=== PATIENT | female | born 1995 | race Caucasian/White ===

== ENCOUNTER 2021-01-16 14:52 | Emergency (ER) | payer OTHER, SELFPAY ==
[2021-01-16 19:25] VITALS: BP 109/70; PULSE 99; RESP 16; TEMP 36.3; O2SAT 99; BMI 28.0
[2021-01-16 20:54] VITALS: PULSE 83; RESP 12; TEMP 37.1; O2SAT 100
--- NOTE | 2021-01-16 22:00 | ED.ABDPAIN ---
HPI - Abdominal Pain General Chief Complaint: Abdominal Pain Stated Complaint: groin pain Time Seen by Provider: 01/16/21 21:39 Source: patient Mode of arrival: ambulatory Limitations: no limitations History of Present Illness HPI narrative: 25-year-old female who presents emergency department for evaluation lower abdominal and right groin pain x1 week. The patient states that she felt a small bump in the right lower groin area. She states the bump is gotten larger and is now very painful. She states she pushes on the bump the pain is 7/10. The pain is a constant, dull ache otherwise. She denied fever, chills, chest pain, shortness of breath, nausea, vomiting, frequency, urgency or dysuria. Related Data Previous Rx's Medication Instructions Recorded cephalexin 500 mg capsule 500 mg PO QID 7 Days #28 cap 01/16/21 Allergies Allergy/AdvReac Type Severity Reaction Status Date / Time No Known Allergies Allergy Verified 01/16/21 22:04 Review of Systems Review of Systems Yes all other systems are reviewed and are negative Physical Exam Vital Signs: Vital Signs: Last Vital Signs Temp 98.7 F 01/16/21 20:54 Pulse 83 01/16/21 20:54 Resp 12 01/16/21 20:54 BP 109/70 01/16/21 19:25 Pulse Ox 100 01/16/21 20:54 Body Mass Index 28.0 Const: General: cooperative and no acute distress Orientation/consciousness: oriented to person and oriented to place Limitations: no limitations HENMT: Head: Yes normal to inspection, Yes normocephalic and Yes atraumatic Ears: external ears normal General nose exam: Normal external nose present Face and sinus: Yes normal facial exam Mouth: Normal oral and palatal mucosa present Throat: Yes posterior oropharynx normal Eyes: General: appearance normal, both eyes and all related structures Pupils: Equal, round and reactive pupils present Neck: Neck: Yes normal visual inspection, Yes no lymphadenopathy, Yes trachea midline and Yes supple Chest: Chest palpation & inspection: normal inspection of the chest and normal palpation of entire chest wall Resp: Effort & Inspection: normal respiratory effort and able to speak in complete sentences Auscultation: clear to auscultation bilaterally Cardio: Rate: regular rate Rhythm: regular rhythm Heart sounds: S1 normal heart sound present, S2 normal heart sound present and no murmurs GI: Inspection: Yes normal to inspection Palpation (GI): Soft to palpation, Tenderness to palpation present (GI) (Right groin crease, small, 1 cm tender mass, no erythema or increased warmt) and no guarding Auscultation: normal bowel sounds : General: Yes no CVA tenderness Back/Spine/Pelvis: Back: no CVA tenderness Skin: General skin exam: no rashes or lesions noted Neuro: General: oriented to person and oriented to place Cranial nerves: Yes CN's II-XII intact bilaterally and Yes Equal, round and reactive pupils present Cognition (Neuro): normal cognition Motor exam (neuro): 5/5 motor strength present throughout Extrem: General: Yes normal to inspection Psych: Appearance: grossly normal Speech and movement: Normal speech and movement present Affect: normal affect Attitude: cooperative Thought process: Normal thought process present Thought content: Normal thought content present Course Course Course Narrative: 25-year-old female who presents emergency department for evaluation of right groin crease pain with a palpable mass. Physical examination does reveal a any small palpable mass in this area which I suspect is either an early abscess or lymph node. I did discuss treatment with the patient. The patient will be started on Keflex 500 mg 4 times a day for 7 days. She was also advised to take Tylenol and ibuprofen for pain. She was advised to get a heating pad and set on lower apply to this area for 15 minutes 4 to 6 times a day. Patient was discharged home. The patient was given verbal and printed instructions prior to discharge. The patient was advised to follow-up with h her s PCP in 2 days and to return to the emergency department if her symptoms get worse or if he develops any new symptoms that are concerning to her. Discharge Plan Discharge Clinical Impression: Abscess of groin, right Patient Disposition: Home, Self-Care Instructions: Abscess (ED) Additional Instructions: The tenderness in your right groin is most likely caused by an early abscess (collection of pus) that does not need to be drained at this time. I want to treat you with antibiotics to clear up this infection. Take Keflex (cephalexin) 500 mg, 1 pill 4 times a day for 7 days. Apply a heating pad on low for 15 minutes 4 to 6 times a day for the next 2-3 days, this will increase the blood flow to the area of her groin and help fight off the infection. Take ibuprofen 200 mg pills, 3 pills every 6 hours as needed for pain. Take Tylenol (acetaminophen) 500 mg pills, 2 pills every 4 to 6 hours as needed for pain. Follow-up with your doctor in 2 days. Please return to the emergency department if your symptoms get worse or if you develop any symptoms that are concerning to you. Prescriptions: New cephalexin 500 mg capsule 500 mg PO QID 7 Days Qty: 28 RF: 0 PMFSH Past Medical History PMFSH Narrative: Past will history: None. Past surgical history: Appendectomy, April 2017. Social history: She denies tobacco use. She denies alcohol use. She denies drug use. Social History Social History Advance Directives: No Advance Directives Information Provided: Yes Patient : No
[2021-01-16] MEDS: cephALEXin 500 MG CAPSULE PO (22:27)
[2021-01-16] MEDS: Ibuprofen 600 MG TABLET PO (22:27)
== END 2021-01-16 22:32 | disposition home or self-care (01) ==
PROVIDERS: Emergency Provider Emergency Medicine Emergency Medical Services; PCP Internal Medicine
DX: L02.214 Cutaneous abscess of groin (principal); Z79.899 Other long term (current) drug therapy
CPT/HCPCS: 99284

== ENCOUNTER 2021-04-17 21:43 | Emergency (ER) | payer OTHER, SELFPAY ==
--- NOTE | ~2021-04-17 | XR_ITS ---
EXAMINATION: XR HAND, LEFT CLINICAL INFORMATION: Dog bite to left thumb. COMPARISON: None TECHNIQUE: PA, lateral, and oblique views of the left hand. FINDINGS: No acute fracture or dislocation. No joint space narrowing or marginal osteophytes. No osseous erosion. No radiopaque foreign body. XR/XR hand LT min 3V IMPRESSION: No acute osseous abnormality or radiopaque foreign body.
[2021-04-17 22:15] VITALS: BP 130/90; PULSE 84; RESP 18; TEMP 36.6; O2SAT 98; BMI 27.6
--- NOTE | 2021-04-17 22:35 | ED.ANIMALBIT ---
HPI - Animal Bite General Chief Complaint: Animal Bite Stated Complaint: lacs from dog bite Time Seen by Provider: 04/17/21 22:32 Source: patient Mode of arrival: ambulatory History of Present Illness HPI narrative: 25-year-old female reports being bitten by an unknown dog without tags that she states responded to loud noise when she was jumping her garbage. Patient states that she has received Tdap within the past year. Related Data Previous Rx's Medication Instructions Recorded cephalexin 500 mg capsule 500 mg PO QID 7 Days #28 cap 01/16/21 amoxicillin 875 mg-potassium 1 tab PO Q12H 5 Days #10 tab 04/17/21 clavulanate 125 mg tablet (Augmentin) Allergies Allergy/AdvReac Type Severity Reaction Status Date / Time No Known Allergies Allergy Verified 01/16/21 22:04 Review of Systems Review of Systems: Pertinent positives and negatives as stated in HPI 10 point review of systems otherwise negative. PMFSH Past Medical History Source: nursing notes reviewed Social History Social History Advance Directives: No Patient : No Physical Exam Vital Signs: Vital Signs: Last Vital Signs Temp 97.8 F 04/17/21 22:15 Pulse 84 04/17/21 22:15 Resp 18 04/17/21 22:15 BP 130/90 H 04/17/21 22:15 Pulse Ox 98 04/17/21 22:15 BMI result Body Mass Index 27.6 VITAL SIGNS: Reviewed. GENERAL: Well developed, well nourished, in no acute distress. HEAD: Normocephalic/atraumatic EYES: PERRLA, EOMI LUNGS: Normal breath sounds. No adventitious sounds or accessory muscle use. SpO2<98> CARDIOVASCULAR: Regular rate and rhythm without noted murmurs ABDOMEN: Soft, non-tender, non-distended with bowel sounds. LEFT LOWER EXTREMITY: Very superficial abrasions to epidermis without deeper injury to lateral aspect of lower leg. LEFT UPPER EXTREMITY: There are a few superficial epidermal abrasions to elbow area with corresponding deeper dermal injuries and than obvious laceration to pad of left thumb. NEUROLOGIC: Alert and oriented x 4. Strength and sensation to light touch were grossly intact x 4. Course Course Course Narrative: 25-year-old female with history and clinical presentation consistent with unknown dog who bit patient. Patient has up-to-date Tdap and otherwise received rabies post exposure vaccines as per CDC guidelines. X-ray negative for acute bony injury of the left thumb. Patient received combination analgesics as well as suture repair to left thumb which patient tolerated well. Patient understands the return regimen for subsequent rabies vaccine administration and was otherwise discharged home in stable condition. Wound copiously injected with HRIG. Procedures Laceration Laceration 1: Site: upper extremity Side (If applicable): left Size (cm): 2 Description: linear Depth: simple, single layer Local Anesthetic: lidocaine 2% Amount of anesthesia used (mL): 5 Pre-repair: wound explored, irrigated extensively and deep structures intact Skin layer closed with: nylon Size (cm): 4-0 Number of sutures: 2 Technique: simple, interrupted Discharge Plan Discharge Clinical Impression: Dog bite, Need for post exposure prophylaxis for rabies, Laceration of hand Patient Disposition: Home, Self-Care Instructions: Animal Bite (ED), Laceration (ED), Rabies Immune Globulin (By injection), Rabies Vaccine (By injection), Care For Your Stitches (ED) Additional Instructions: 1. [id number] Tylenol/ibuprofen as needed for pain control. Keep your hand elevated to prevent throbbing pain into the thumb. 2. Please follow the below directions as well as the paperwork that was provided to you by the nurse for subsequent rabies vaccines. 3. Return to the ER for removal of your stitches in 5-7 days. These can be gently wash with soap and water/blot dry/re-application of bacitracin or other antibiotic ointment. 4. Complete the entire course of antibiotics that you have been prescribed. Postexposure prophylaxis (PEP) consists of a dose ofgiven on the day of the rabies exposure, and then a dose of vaccine given again on days 3, 7, and 14. Prescriptions: New amoxicillin-pot clavulanate [Augmentin] 875-125 mg tablet 1 tab PO Q12H 5 Days Qty: 10 RF: 0 No Action cephalexin 500 mg capsule 500 mg PO QID 7 Days Qty: 28 RF: 0
[2021-04-17] MEDS: Rabies Vaccine (PCEC)/PF 1 ML VIAL IM (23:47)
[2021-04-17] MEDS: Rabies Immune Globulin/PF 1,500 UNIT/5 ML VIAL 1120 UNIT IM (23:49)
[2021-04-17] MEDS: Amoxicillin/Potassium Clav 875 MG TABLET PO (23:50)
[2021-04-17] MEDS: Acetaminophen 325 MG TABLET 975 MG PO (23:50)
[2021-04-17] MEDS: Ibuprofen 400 MG TABLET PO (23:51)
--- NOTE | 2021-04-18 00:06 | PC.NURSE ---
LIDOCAINE WAS OVER RIDDEN BECAUSE WE DID NOT HAVE THE CONCENTRACION THAT DR CALLEJAS ORDERED. 2% LIDO 5ML WAS REMOVED AND GIVEN TO DR CALLEJAS WHO WAS AWARE OF THE EXCHANGE. ORDER REQUESTED. PLEASE NOTE THAT WHEN DRAWING UP THE RABIES IMMUNE GLOBULIN 3.73ML WAS CONTAMINATED AND HAD TO BE WASTED BY THIS NURSE (1200UNITS). THIS NURSE THEN REMOVED A NEW DOSE OF RABIES IMMUNE GLOBULIN THAT WAS ADMINISTERED PER PROTOCOL INTO WOUND BY AND THE REST INTO RIGHT DELTOID BY THIS NURSE.
== END 2021-04-18 00:22 | disposition home or self-care (01) ==
PROVIDERS: Emergency Provider Student in an Organized Health Care Education/Training Program
DX: S61.052A Open bite of left thumb without damage to nail, initial encounter (principal); S50.372A Other superficial bite of left elbow, initial encounter; S80.872A Other superficial bite, left lower leg, initial encounter; W54.0XXA Bitten by dog, initial encounter; Y93.9 Activity, unspecified; Y92.015 Private garage of single-family (private) house as the place of occurrence of the external cause; Y99.9 Unspecified external cause status; Z20.3 Contact with and (suspected) exposure to rabies
CPT/HCPCS: 12001; 73130; 90375; 90471; 90675; 96372; 99284

== ENCOUNTER 2021-04-20 09:01 | Outpatient (REF) | payer OTHER, SELFPAY | END 2021-04-20 09:02 | disposition home or self-care (01) | LOC: HO.MDS 09:01 | DX: Z29.14 Encounter for prophylactic rabies immune globulin (principal); S61.452D Open bite of left hand, subsequent encounter; S41.152D Open bite of left upper arm, subsequent encounter; S80.812D Abrasion, left lower leg, subsequent encounter; W54.0XXD Bitten by dog, subsequent encounter; Z20.3 Contact with and (suspected) exposure to rabies | CPT/HCPCS: 90471; 90675 ==

== ENCOUNTER 2021-04-24 09:37 | Emergency (ER) | payer OTHER, SELFPAY ==
[2021-04-24 09:53] VITALS: BP 113/72; PULSE 81; RESP 16; TEMP 36.8; O2SAT 98; BMI 26.2
[2021-04-24] MEDS: Rabies Vaccine (PCEC)/PF 1 ML VIAL IM (10:16)
--- NOTE | 2021-04-24 10:45 | ED.GENADULT ---
HPI - General Adult General Chief complaint: General Medical Stated complaint: stitches removed Time Seen by Provider: 04/24/21 09:55 Source: patient Mode of arrival: ambulatory History of Present Illness HPI narrative: 25-year-old female presenting to the ED for suture removal from left thumb s/p dog bite on 04/17 and also 3rd dose of rabies vaccination. Patient was seen and treated in our ED after incident had 2 sutures placed, negative x-rays. Reports continued pain to area. Denies redness, drainage, fever, chills, numbness, tingling Onset (ago): week(s) Related Data Previous Rx's Medication Instructions Recorded cephalexin 500 mg capsule 500 mg PO QID 7 Days #28 cap 01/16/21 amoxicillin 875 mg-potassium 1 tab PO Q12H 5 Days #10 tab 04/17/21 clavulanate 125 mg tablet (Augmentin) Allergies Allergy/AdvReac Type Severity Reaction Status Date / Time No Known Allergies Allergy Verified 01/16/21 22:04 Review of Systems Review of Systems: Constitutional: No Fever, No Chills ENT/Mouth: No Ear Pain, No Nasal Congestion, No sore throat, No Rhinorrhea Cardiovascular: No Chest Pain, No SOB Respiratory: No Cough Gastrointestinal: No Nausea, No Vomiting, No Diarrhea, No Constipation, No Abdominal pain Genitourinary:No Urinary Frequency, No Urgency, No Flank Pain Musculoskeletal: No joint pain, No Myalgias, + Joint Swelling Skin: + Skin Lesions, No rash Neuro: No Weakness, No Numbness, No Paresthesias Yes all other systems are reviewed and are negative Neurologic: Denies Sensory deficit (Neuro) ON LICENSE OF [facility] Past Medical History Attestation statement: The following information was validated with the patient. Social History Social History Advance Directives: No Advance Directives Information Provided: No Patient : No Physical Exam Vital Signs: Vital Signs: Last Vital Signs Temp 98.2 F 04/24/21 09:53 Pulse 81 04/24/21 09:53 Resp 16 04/24/21 09:53 BP 113/72 04/24/21 09:53 Pulse Ox 98 04/24/21 09:53 BMI result Body Mass Index 26.2 Const: General: cooperative, healthy appearing and no acute distress Orientation/consciousness: patient oriented x3 Limitations: no limitations HENMT: Head: Yes normal to inspection Ears: hearing grossly normal bilaterally General nose exam: Normal external nose present Face and sinus: Yes normal facial exam Eyes: General: appearance normal, both eyes and all related structures EOM: EOMs intact bilaterally Neck: Neck: Yes normal visual inspection and Yes no meningeal signs Resp: Effort & Inspection: normal respiratory effort and no respiratory distress Cardio: Rate: regular rate Peripheral pulses: radial pulses present Skin: Other: Healing laceration to left thumb pad with 2 sutures intact. Mildly tender. No erythema, no fluctuance/induration, no streaking. Small left thumb subungual hematoma. For range of motion of thumb intact Rashes: no rashes Neuro: General: patient oriented x3, tone normal and no meningeal signs Sensory Exam: No Sensory deficit (Neuro) Extrem: General: Yes normal to inspection Procedures Procedure Narrative Procedure Narrative: Suture removal: 2 sutures removed from left thumb No complications Medical Decision Making MDM Narrative Medical decision making narrative: 25-year-old female presenting to the ED for suture removal from left thumb s/p dog bite on 04/17 and also 3rd dose of rabies vaccination. On exam vital signs stable, NAD/well-appearing, physical exam as above. Two sutures removed from thumb without complication. Patient given 3rd dose of rabies vaccine Medical Records Medical records reviewed: Yes I reviewed the patient's medical records. Lab Data Lab results reviewed: Yes I reviewed the patient's lab results. Discharge Plan Discharge Clinical Impression: Visit for suture removal, Need for rabies vaccination Patient Disposition: Home, Self-Care Instructions: Stitches Removal (ED) Additional Instructions: Your sutures were removed Keep area clean, apply bacitracin and Neosporin. You may also apply anti scar cream like Mederma Please continue to follow-up for the remainder of her rabies vaccinations on day 14, 05/01/21 If area begins to look infected, is red, there is drainage, or you fever please return to the ED Prescriptions: No Action cephalexin 500 mg capsule 500 mg PO QID 7 Days Qty: 28 RF: 0 amoxicillin-pot clavulanate [Augmentin] 875-125 mg tablet 1 tab PO Q12H 5 Days Qty: 10 RF: 0 Interventions: ED Discharge Assessment Last Done: 04/24/21 10:54 Discharge Date/Time: 04/24/21 10:55
== END 2021-04-24 10:55 | disposition home or self-care (01) ==
PROVIDERS: Emergency Provider Emergency Medicine
DX: Z29.14 Encounter for prophylactic rabies immune globulin (principal); Z48.02 Encounter for removal of sutures
CPT/HCPCS: 90471; 90675; 99283; 99284

== ENCOUNTER 2021-05-02 09:54 | Outpatient (REF) | payer OTHER, SELFPAY | END 2021-05-02 09:55 | disposition home or self-care (01) | LOC: HO.MDS 09:54 | PROVIDERS: Visit Provider Student in an Organized Health Care Education/Training Program | DX: Z29.14 Encounter for prophylactic rabies immune globulin (principal); S61.452D Open bite of left hand, subsequent encounter; S41.152D Open bite of left upper arm, subsequent encounter; S80.812D Abrasion, left lower leg, subsequent encounter; W54.0XXD Bitten by dog, subsequent encounter; Z20.3 Contact with and (suspected) exposure to rabies | CPT/HCPCS: 90471; 90675 ==

== ENCOUNTER 2021-06-10 20:20 | Emergency (ER) | payer OTHER, SELFPAY ==
[2021-06-10 20:28] VITALS: BP 123/51; PULSE 70; RESP 16; TEMP 36.2; O2SAT 100; BMI 26.9
[2021-06-10 21:27] VITALS: BP 106/60; PULSE 77; RESP 16; TEMP 36.8; O2SAT 100
[2021-06-10 21:34] LABS: Appearance Urine HAZY; Color Urine YELLOW; Glucose Urine UA NEG (NEG); Leukocyte Esterase Urine NEG (NEG); Nitrite Urine NEG (NEG); PH 6.5 (5.0-8.0); Specific Gravity - Urine 1.015 (1.005-1.025); Urine Blood NEG (NEG); Urine Ketones NEG (NEG); Urine Protein NEG (NEG-TRACE)
[2021-06-10 21:36] LABS: UPreg QC Valid YES; Urine Pregnancy NEGATIVE (NEGATIVE)
[2021-06-10] MEDS: Acetaminophen 325 MG TABLET 975 MG PO (21:43)
--- NOTE | 2021-06-10 21:56 | ED_ITS ---
HPI - General Adult General Chief complaint: Abdominal Pain Stated complaint: abdominal pain leading to the back, vag. bleeding Time Seen by Provider: 06/10/21 21:04 Source: patient Mode of arrival: ambulatory History of Present Illness HPI narrative: 26-year-old female without significant past medical history presents for starting with some lower pelvic cramping with radiation into the back that has not been associated with urinary pain/burning/frequency and denies fever, chills, nausea, vomiting, diarrhea. Patient has an IUD in place since 2018. Related Data Previous Rx's Medication Instructions Recorded cephalexin 500 mg capsule 500 mg PO QID 7 Days #28 cap 01/16/21 amoxicillin 875 mg-potassium 1 tab PO Q12H 5 Days #10 tab 04/17/21 clavulanate 125 mg tablet (Augmentin) Allergies Allergy/AdvReac Type Severity Reaction Status Date / Time No Known Allergies Allergy Verified 01/16/21 22:04 Review of Systems Verdana 4l Review of Systems: Verdana 4d Pertinent positives and Verdana 4d negatives as stated in HPI 10 point review Verdana 4d PMFSH Past Medical History Source: nursing notes reviewed Social History Social History Advance Directives: No Advance Directives Information Provided: Yes Patient : No Physical Exam Verdana 4l Vital Signs: Verdana 4d Verdana 4d Vital Signs: Verdana 4d Verdana 4Bd Last Vital Signs Verdana 4d Mold Capper Helper New 4d Mold Capper Helper New 4d Temp 98.3 F 06/10/21 21:27 Mold Capper Helper New 4d Pulse 77 06/10/21 21:27 Mold Capper Helper New 4d Resp 16 06/10/21 21:27 BP 106/60 06/10/21 21:27 Pulse Ox 100 06/10/21 21:27 BMI result Body Mass Index 26.9 VITAL SIGNS: Reviewed. GENERAL: Well developed, well nourished, in no acute distress. HEAD: Normocephalic/atraumatic EYES: PERRLA, EOMI OROPHARYNX: no oral lesions noted, posterior pharynx clear NECK: Supple, no adenopathy LUNGS: Normal breath sounds. No adventitious sounds or accessory muscle use. SpO2<100> CARDIOVASCULAR: Regular rate and rhythm without noted murmurs ABDOMEN: Soft, minimal suprapubic discomfort on palpation, non-distended with bowel sounds, no CVA tenderness MUSCULOSKELETAL: No tenderness, deformities, or effusions noted on gross inspection. EXTREMITIES: No cyanosis, clubbing or edema. SKIN: Inspection of the skin reveals no rashes NEUROLOGIC: Alert and oriented x 4. Strength and sensation to light touch were grossly intact x 4. Course Course Course Narrative: 26-year-old female with history and clinical presentation consistent with menstrual symptoms. Otherwise urinalysis and urine are negative. There is no indication on history or clinical exam of intra-abdominal pathology such as appendicitis, SBO (patient has history of ), or gastroenteritis. All results were discussed with the patient at bedside as well as the plan for her to treat this as a menstrual. And patient has appointment for confirmation of IUD placement on Monday (there is no clinical suspicion for IUD misplacement). Medical Decision Making Lab Data Labs: Lab Results 06/10/21 06/10/21 Range/Units 21:28 21:28 Urine Color YELLOW Urine Appearance HAZY Urine pH 6.5 (5.0-8.0) Ur Specific [place]ley 1.015 (1.005-1.025) Urine Protein NEG (NEG-TRACE) MG/DL Urine Glucose (UA) NEG (NEG) MG/DL Urine Ketones NEG (NEG) MG/DL Urine Blood NEG (NEG) Urine Nitrite NEG (NEG) Ur Leukocyte Esterase NEG (NEG) Urine Test NEGATIVE (NEGATIVE) Discharge Plan Discharge Clinical Impression: Menstrual cramps Patient Disposition: Home, Self-Care Instructions: Dysmenorrhea (ED) Additional Instructions: Keep your appointment for IUD confirmation this coming Monday. Recommend [id number] Tylenol/ibuprofen as needed for discomfort. Return to the ER for acute worsening of symptoms. Prescriptions: No Action cephalexin 500 mg capsule 500 mg PO QID 7 Days Qty: 28 0RF amoxicillin-pot clavulanate [Augmentin] 875-125 mg tablet 1 tab PO Q12H 5 Days Qty: 10 0RF
== END 2021-06-10 22:27 | disposition home or self-care (01) ==
PROVIDERS: Emergency Provider Student in an Organized Health Care Education/Training Program; PCP Internal Medicine
DX: N94.6 Dysmenorrhea, unspecified (principal)
CPT/HCPCS: 81003; 81025; 99283

== ENCOUNTER 2021-09-29 03:51 | Emergency (ER) | payer OTHER, SELFPAY ==
--- NOTE | ~2021-09-29 | US_ITS ---
EXAMINATION: US ABDOMEN LIMITED CLINICAL INFORMATION: Right upper quadrant pain. COMPARISON: None TECHNIQUE: Real-time imaging of the right upper quadrant abdominal viscera. FINDINGS: PANCREAS: The visualized proximal portion of the pancreas is unremarkable. The distal portion is obscured secondary to overlying bowel gas. LIVER: The liver is normal in size. The liver contour is normal. Parenchymal echogenicity is normal. No focal hepatic lesion. There is no intrahepatic biliary duct dilatation seen. GALLBLADDER: The gallbladder is physiologically distended without evidence of stones, sludge, polyps, wall thickening or pericholecystic fluid. COMMON BILE DUCT: Normal in caliber measuring 0.5 cm in diameter. RIGHT KIDNEY: No hydronephrosis. No renal calculi or focal parenchymal lesions. The kidney measures 10.0 cm in maximum dimension. FREE FLUID: None. US/US abdomen limited IMPRESSION: No acute findings identified.
[2021-09-29 04:01] VITALS: BP 121/79; PULSE 120; RESP 20; TEMP 36.5; O2SAT 99; BMI 26.9
[2021-09-29 04:05] VITALS: BP 113/77; PULSE 84; RESP 18; TEMP 36.6; O2SAT 98
--- NOTE | 2021-09-29 04:15 | ED_ITS ---
HPI - Abdominal Pain General Chief Complaint: Abdominal Pain Stated Complaint: upper abd pain, swollen; back pain Time Seen by Provider: 09/29/21 04:08 Source: patient Mode of arrival: ambulatory Limitations: no limitations History of Present Illness MD elicited complaint: abdominal pain Pertinent past history: none Onset (ago): week(s) (1) Pain Consistency: constant Location: epigastric Severity: moderate Quality: aching Radiation: LUQ, RUQ and back Migration to: no migration Exacerbating factors: eating and movement Relieving factors: nothing Associated symptoms: nausea and vomiting Related Data Previous Rx's Medication Instructions Recorded cephalexin 500 mg capsule 500 mg PO QID 7 Days #28 cap 01/16/21 amoxicillin 875 mg-potassium 1 tab PO Q12H 5 Days #10 tab 04/17/21 clavulanate 125 mg tablet (Augmentin) omeprazole 20 mg capsule,delayed 20 mg PO BID #28 cap 09/29/21 release ondansetron 4 mg disintegrating 4 mg PO Q8H PRN #20 tab 09/29/21 tablet Allergies Allergy/AdvReac Type Severity Reaction Status Date / Time No Known Allergies Allergy Verified 09/29/21 04:03 Review of Systems Review of Systems Constitutional : No Weight loss, No Fever, No Chills ENT/Mouth : No sore throat, No Rhinorrhea Eyes: No Swelling, No Redness Cardiovascular : No Chest Pain, No SOB, NoEdema Respiratory : No Cough, No Sputum, No Wheezing Gastrointestinal : Positive Nausea, Positive Vomiting, no Diarrhea, positive abdominal Pain, No Hematochezia, No Melena Genitourinary : No Dysuria, No Urinary Frequency, No Hematuria, No Urgency Musculoskeletal : No joint pain, No Myalgias, No Joint Swelling Skin : No Skin Lesions, No rash Neuro : No Weakness, No Numbness, No Dizziness, No Headache Psych : No Anxiety/Panic, No Depression Heme/Lymph: No Bruising, No Lymphadenopathy Endocrine : No Polyuria, No Polydipsia All other systems reviewed and are negative. [facility] Past Medical History Attestation statement: The following information was validated with the patient. Medical History No pertinent past medical history Surgical History S/P appendectomy Social History Social History Alcohol intake: never Patient Tobacco Use Status: Never used Tobacco Advance Directives: No Advance Directives Information Provided: No Physical Exam ED Vital Signs: Vital Signs - 24 hr 09/29/21 04:01 09/29/21 04:05 09/29/21 05:56 Temperature 97.7 F 97.8 F Pulse Rate 120 H 84 75 Respiratory Rate 20 18 18 Blood Pressure 121/79 113/77 99/56 L Pulse Oximetry 99 98 100 BMI result Body Mass Index 26.9 Appearance: Alert. Oriented X3. No acute distress. Eyes: Pupils equal, round and reactive to light. ENT: Pharynx normal. Neck: Normal inspection. Neck supple. CVS: Normal heart rate and rhythm. Pulses normal. Respiratory: No respiratory distress. Breath sounds normal. Abdomen: Soft and moderate ttp no rebound, + RUQ pain + sharp's sign Skin: Skin warm and dry. Normal skin color. Normal skin turgor. Extremities: No lower extremity edema. No calf ttp Neuro: Oriented X 3. No motor deficit. No sensory deficit. Course Course Course Narrative: US - LFTs and lipase normal UA and UPT negative tolerated PO stable for DC MDM - Abdominal Pain MDM Narrative Medical decision making narrative: 26 yo female s/p appendectomy here with c/o n/v and upper abdominal pain x 1 week at this time will obtain labs, UA/UPT, US to evaluate GB she has no new exposures, travel, antibiotic use. Dispo per results and findings. Lab Data Result diagrams: 09/29/21 04:26 09/29/21 04:57 Labs: Lab Results 09/29/21 09/29/21 09/29/21 Range/Units 04:26 04:26 04:57 WBC 13.9 H (4.8-10.8) X10*3/uL RBC 4.86 (4.20-5.50) X10*6/uL Hgb 14.6 (12.0-16.0) g/dl Hct 44.3 (37.0-47.0) % MCV 91.2 (80.0-98.0) fL MCH 30.0 (27.0-33.0) pg MCHC 33.0 (31.0-35.0) g/dl RDW 11.9 (11.0-16.0) % Plt Count 370 (160-400) X10*3/uL MPV 10.0 (9.4-12.3) fL Immature Gran % (Auto) 0.2 (0.0-0.4) % Neut % (Auto) 69.2 (45-73) % Lymph % (Auto) 23.2 (20-40) % [place] % (Auto) 5.8 (2-11) % Eos % (Auto) 1.4 (0-4) % Baso % (Auto) 0.2 (0-2) % Lymph # (Auto) 3.2 (1.2-4.9) X10*3/uL [place] # (Auto) 0.8 (0.1-1.2) X10*3/uL Eos # (Auto) 0.2 (0.0-0.4) X10*3/uL Baso # (Auto) 0.0 (0.0-0.2) X10*3/uL Abs Immat Gran (auto) 0.03 (0.00-0.03) X10*3/uL Absolute Neuts (auto) 9.6 H (2.0-8.3) x10*3/uL Absolute Nucleated RBC 0.000 (0.0-0.012) X10*3/uL Nucleated RBC % (auto) 0.0 (0.0-0.2) /100WBC Sodium 138 (135-145) mmol/L Potassium 3.7 (3.3-5.1) mmol/L Chloride 108 (96-108) mmol/L Carbon Dioxide 22 (22-29) mmol/L Anion Gap 12 (12-20) BUN 12 (9-16) mg/dL Creatinine 0.87 (0.5-1.4) mg/dL Estim Creat Clear Calc 67.9 Estimated GFR > 60 Random Glucose 96 (60-115) mg/dL Calcium 9.4 (8.4-10.2) mg/dL Magnesium 2.0 (1.6-2.6) mg/dL Total Bilirubin 0.3 (0.0-1.0) mg/dL Direct Bilirubin < 0.2 (0.0-0.5) mg/dL AST 16 (5-31) U/L ALT 31 (0-31) U/L Alkaline Phosphatase 93 (39-117) U/L Total Protein 7.5 (6.5-8.0) g/dL Albumin 4.3 (3.5-5.0) g/dL Lipase 32 (8-78) U/L Urine Color Urine Appearance Urine pH (5.0-8.0) Ur Specific [place] (1.005-1.025) Urine Protein (NEG-TRACE) MG/DL Urine Glucose (UA) (NEG) MG/DL Urine Ketones (NEG) MG/DL Urine Blood (NEG) Urine Nitrite (NEG) Ur Leukocyte Esterase (NEG) Urine RBC (0) /HPF Urine WBC (0-4) /HPF Ur Squamous Epith Cells /LPF Ur Renal Epithelial Cell /LPF Urine Bacteria /LPF Urine Mucus /LPF Urine Test (NEGATIVE) Urine Opiates Screen (Not Detect) Urine Fentanyl Screen (Not Detect) Ur Barbiturates Screen (Not Detect) Ur Phencyclidine Scrn (Not Detect) Ur Amphetamines Screen (Not Detect) U Benzodiazepines Scrn (Not Detect) Urine Cocaine Screen (Not Detect) U Marijuana (THC) Screen (Not Detect) COVID-19 (RADHA) Negative (Negative) COVID-19 Clin Com See Note 09/29/21 09/29/21 09/29/21 Range/Units 06:12 06:12 06:12 WBC (4.8-10.8) X10*3/uL RBC (4.20-5.50) X10*6/uL Hgb (12.0-16.0) g/dl Hct (37.0-47.0) % MCV (80.0-98.0) fL MCH (27.0-33.0) pg MCHC (31.0-35.0) g/dl RDW (11.0-16.0) % Plt Count (160-400) X10*3/uL MPV (9.4-12.3) fL Immature Gran % (Auto) (0.0-0.4) % Neut % (Auto) (45-73) % Lymph % (Auto) (20-40) % [place] % (Auto) (2-11) % Eos % (Auto) (0-4) % Baso % (Auto) (0-2) % Lymph # (Auto) (1.2-4.9) X10*3/uL [place] # (Auto) (0.1-1.2) X10*3/uL Eos # (Auto) (0.0-0.4) X10*3/uL Baso # (Auto) (0.0-0.2) X10*3/uL Abs Immat Gran (auto) (0.00-0.03) X10*3/uL Absolute Neuts (auto) (2.0-8.3) x10*3/uL Absolute Nucleated RBC (0.0-0.012) X10*3/uL Nucleated RBC % (auto) (0.0-0.2) /100WBC Sodium (135-145) mmol/L Potassium (3.3-5.1) mmol/L Chloride (96-108) mmol/L Carbon Dioxide (22-29) mmol/L Anion Gap (12-20) BUN (9-16) mg/dL Creatinine (0.5-1.4) mg/dL Estim Creat Clear Calc Estimated GFR Random Glucose (60-115) mg/dL Calcium (8.4-10.2) mg/dL Magnesium (1.6-2.6) mg/dL Total Bilirubin (0.0-1.0) mg/dL Direct Bilirubin (0.0-0.5) mg/dL AST (5-31) U/L ALT (0-31) U/L Alkaline Phosphatase (39-117) U/L Total Protein (6.5-8.0) g/dL Albumin (3.5-5.0) g/dL Lipase (8-78) U/L Urine Color STRAW Urine Appearance HAZY Urine pH 6.0 (5.0-8.0) Ur Specific [place] 1.010 (1.005-1.025) Urine Protein NEG (NEG-TRACE) MG/DL Urine Glucose (UA) NEG (NEG) MG/DL Urine Ketones NEG (NEG) MG/DL Urine Blood 1+ H (NEG) Urine Nitrite NEG (NEG) Ur Leukocyte Esterase NEG (NEG) Urine RBC 1-4 (0) /HPF Urine WBC 0 (0-4) /HPF Ur Squamous Epith Cells 1+ /LPF Ur Renal Epithelial Cell 1+ /LPF Urine Bacteria NONE /LPF Urine Mucus 1+ /LPF Urine Test NEGATIVE (NEGATIVE) Urine Opiates Screen Not Detected (Not Detect) Urine Fentanyl Screen Not Detected (Not Detect) Ur Barbiturates Screen Not Detected (Not Detect) Ur Phencyclidine Scrn Not Detected (Not Detect) Ur Amphetamines Screen Not Detected (Not Detect) U Benzodiazepines Scrn Not Detected (Not Detect) Urine Cocaine Screen Not Detected (Not Detect) U Marijuana (THC) Screen Not Detected (Not Detect) COVID-19 (RADHA) (Negative) COVID-19 Clin Com Discharge Plan Discharge Clinical Impression: Abdominal pain, Gastritis Patient Disposition: Home, Self-Care Instructions: Gastritis (ED), Abdominal Pain (ED) Additional Instructions: return to ED for any worsening symptoms or concerns BLAND DIET and no alcohol for the next week EXAMINATION: US ABDOMEN LIMITED CLINICAL INFORMATION: Right upper quadrant pain. COMPARISON: None TECHNIQUE: Real-time imaging of the right upper quadrant abdominal viscera. FINDINGS: PANCREAS: The visualized proximal portion of the pancreas is unremarkable. The distal portion is obscured secondary to overlying bowel gas. LIVER: The liver is normal in size. The liver contour is normal. Parenchymal echogenicity is normal. No focal hepatic lesion. There is no intrahepatic biliary duct dilatation seen. GALLBLADDER: The gallbladder is physiologically distended without evidence of stones, sludge, polyps, wall thickening or pericholecystic fluid. COMMON BILE DUCT: Normal in caliber measuring 0.5 cm in diameter. RIGHT KIDNEY: No hydronephrosis. No renal calculi or focal parenchymal lesions. The kidney measures 10.0 cm in maximum dimension. FREE FLUID: None. US/US abdomen limited IMPRESSION: No acute findings identified. Prescriptions: New omeprazole 20 mg capsule,delayed release(DR/EC) 20 mg PO BID Qty: 28 0RF Rx Instructions: take twice a day for 7 days then daily for 2 weeks ondansetron 4 mg tablet,disintegrating 4 mg PO Q8H PRN (Reason: nausea and vomiting) Qty: 20 0RF No Action cephalexin 500 mg capsule 500 mg PO QID 7 Days Qty: 28 0RF amoxicillin-pot clavulanate [Augmentin] 875-125 mg tablet 1 tab PO Q12H 5 Days Qty: 10 0RF Referrals: Physician,Unknown J [Primary Care Provider] - 3 days (Primary care doctor if not better) Stand Alone Forms: Work/School Release
[2021-09-29] MEDS: 0.9 % Sodium Chloride 1,000 ML 999 ML IVCONT (04:28)
[2021-09-29 04:34] LABS: Basophils Percent Auto 0.2 % (0-2); Eosinophils Absolute Auto 0.2 X10*3/uL (0.0-0.4); Eosinophils Percent Auto 1.4 % (0-4); Hematocrit 44.3 % (37.0-47.0); Hemoglobin 14.6 g/dl (12.0-16.0); Imm Gran Abs Auto 0.03 X10*3/uL (0.00-0.03); Imm Gran Pct Auto 0.2 % (0.0-0.4); Lymphocytes Absolute Auto 3.2 X10*3/uL (1.2-4.9); Lymphocytes Percent Auto 23.2 % (20-40); MANUAL DIFF FLAG NO; Mean Corpuscular Volume 91.2 fL (80.0-98.0); Monocytes Absolute Auto 0.8 X10*3/uL (0.1-1.2); Monocytes Percent Auto 5.8 % (2-11); Neutrophils Absolute Auto 9.6 x10*3/uL (2.0-8.3); Neutrophils Percent Auto 69.2 % (45-73); Platelet Count 370 X10*3/uL (160-400); Red Blood Count 4.86 X10*6/uL (4.20-5.50); Red Cell Distribution Width 11.9 % (11.0-16.0); White Blood Count 13.9 X10*3/uL (4.8-10.8)
[2021-09-29] MEDS: ondansetron HCL 4 MG/2 ML VIAL IVPUSH (04:45)
[2021-09-29] MEDS: Famotidine/PF 20 MG/2 ML VIAL IVPUSH (04:45)
[2021-09-29 04:54] LABS: COVID-19 Test Negative (Negative)
[2021-09-29 05:23] LABS: Alanine Aminotransferase 31 U/L (0-31); Albumin Level 4.3 g/dL (3.5-5.0); Alkaline Phosphatase 93 U/L (39-117); Anion Gap 12 (12-20); Aspartate Amino Transferase 16 U/L (5-31); Bilirubin Direct < 0.2 mg/dL (0.0-0.5); Bilirubin Total 0.3 mg/dL (0.0-1.0); Blood Urea Nitrogen 12 mg/dL (9-16); Calcium 9.4 mg/dL (8.4-10.2); Carbon Dioxide 22 mmol/L (22-29); Chloride 108 mmol/L (96-108); Creatinine Clr Calc Pharmacy 67.9; Estimated Glomerular Filt Rate > 60; Glucose Random 96 mg/dL (60-115); Lipase 32 U/L (8-78); Potassium 3.7 mmol/L (3.3-5.1); Sodium 138 mmol/L (135-145); Total Protein 7.5 g/dL (6.5-8.0)
[2021-09-29 05:56] VITALS: BP 99/56; PULSE 75; RESP 18; O2SAT 100
[2021-09-29] MEDS: Ketorolac Tromethamine 30 MG/ML VIAL IVPUSH (06:12)
[2021-09-29 06:22] LABS: Appearance Urine HAZY; Color Urine STRAW; Glucose Urine UA NEG (NEG); Leukocyte Esterase Urine NEG (NEG); Nitrite Urine NEG (NEG); UACC Culture Trigger NO; Urine Blood 1+ (NEG); Urine Ketones NEG (NEG); Urine Protein NEG (NEG-TRACE)
[2021-09-29 06:25] LABS: UPreg QC Valid YES; Urine Pregnancy NEGATIVE (NEGATIVE)
[2021-09-29 06:33] LABS: Mucus Urine 1+ /LPF; Renal Epithelial Cells Urine 1+ /LPF; Squamous Epithelial Cell Urine 1+ /LPF; WBC Urine 0 /HPF (0-4)
[2021-09-29 06:35] LABS: Amphetamine Screen Urine Not Detected (Not Detect); Barbiturates, Urine Not Detected (Not Detect); Benzodiazepines Screen Urine Not Detected (Not Detect); Cannabinoid Screen Urine Not Detected (Not Detect); Cocaine Screen Urine Not Detected (Not Detect); Fentanyl, urine Not Detected (Not Detect); Opiate Screen Urine Not Detected (Not Detect); Phencyclidine Screen Urine Not Detected (Not Detect)
== END 2021-09-29 07:20 | disposition home or self-care (01) ==
PROVIDERS: Emergency Provider Emergency Medicine
DX: K29.70 Gastritis, unspecified, without bleeding (principal); R10.12 Left upper quadrant pain; R10.11 Right upper quadrant pain; Z20.822 Contact with and (suspected) exposure to COVID-19; Z79.899 Other long term (current) drug therapy
CPT/HCPCS: 76705; 80048; 80076; 80307; 81001; 81025; 83690; 83735; 85025; 87635; 96361; 96374; 96375; 99284; J1885; J2405

== ENCOUNTER 2023-03-17 13:54 | Emergency (ER) | payer OTHER, SELFPAY ==
--- NOTE | ~2023-03-17 | CT_ITS ---
EXAMINATION: CT ABDOMEN AND PELVIS WITHOUT CONTRAST CLINICAL INFORMATION: Right flank pain COMPARISON: None available. TECHNIQUE: Multidetector volumetric imaging was performed from the superior aspect of the liver through the pubic symphysis. Sagittal and coronal reformatted images were obtained on the technologist's workstation. This CT examination was performed using dose optimization techniques as appropriate, variously including the following: *Automated exposure control *Adjustment of mA and/or kV according to patient size (this includes techniques or standardized protocols for targeted exams where dose is matched to indication/reason for exam; i.e. extremities or head) *Use of iterative reconstruction technique DLP: 459 mGy-cm FINDINGS: LUNG BASES: The visualized lung bases are unremarkable. LIVER, GALLBLADDER, AND BILIARY TREE: The liver is normal in size, shape, and attenuation. No focal hepatic lesion or biliary ductal dilatation is present. The gallbladder is unremarkable with no evidence of radiopaque gallstones, gallbladder wall thickening, or obvious pericholecystic inflammatory changes. PANCREAS: Unremarkable. SPLEEN: Unremarkable. ADRENAL GLANDS: Unremarkable. KIDNEYS AND URETERS: Right kidney: There is a 1 cm stone at the right ureterovesical junction. This has a density measurement of 1243 Hounsfield units. This stone lies 10 cm from the posterior skin line. This is causing moderate hydronephrosis of the right collecting system. No additional stone in the kidney or the ureter. Left kidney: No stone in the kidney or the ureter. No hydronephrosis. BLADDER: Unremarkable. GASTROINTESTINAL TRACT: The small and large bowel are unremarkable. The appendix is surgically absent. ABDOMINAL WALL: No significant hernia is appreciated. LYMPH NODES: Normal. VASCULAR: Unremarkable. PELVIC VISCERA: Uterus is anteverted. IUD in endometrial cavity. Right adnexal cyst/follicle measuring 4 x 3.5 cm. This is almost certainly benign. No follow-up imaging recommended. Density measurement 20 Hounsfield units. OSSEOUS STRUCTURES: Unremarkable. CT/CT abdomen pelvis wo IV con IMPRESSION: 1. Moderate hydronephrosis of right kidney due to a 1 cm stone at the right ureterovesical junction. 2. 4 cm right adnexal cyst/follicle. No follow-up imaging recommended. IUD in endometrial cavity. 3. Status post appendectomy. Fleischner guidelines were followed.
[2023-03-17 14:30] VITALS: BP 109/69; PULSE 76; RESP 18; TEMP 36.8; O2SAT 97; BMI 29.7
--- NOTE | 2023-03-17 14:46 | ED.GENADULT ---
HPI - General Adult General Chief complaint: Back Pain/Injury Stated complaint: pain in back Time Seen by Provider: 03/17/23 14:46 Source: patient Mode of arrival: ambulatory Limitations: no limitations History of Present Illness HPI narrative: Patient is a 27 year old assigned female at with no reported medical history presenting to the emergency department today with right flank pain. Patient states that over the last week she has had right sided flank pain that radiates into her abdomen. Patient denies any dizziness, lightheadedness, nausea, vomiting, fever, chills, blurry vision, double vision, loss of vision, chest pain, difficulty breathing, shortness of breath, night sweats, pain with urination, increased urinary frequency, increased urinary urgency, blood in her urine or stool, syncope or a near syncopal episode, recent trauma or falls, bowel incontinence, bladder incontinence, bowel retention, bladder retention, or any other complaints at this time. Onset (ago): week(s) (1) Location: right (flank) Radiation: abdomen Severity: mild Severity scale (1-10): 4 Quality: aching and dull Pain Consistency: constant Relieving factors: none Exacerbating factors: none Associated symptoms: denies other symptoms Treatments prior to arrival: none Related Data Previous Rx's Medication Instructions Recorded cephalexin 500 mg capsule 500 mg PO QID 7 days #28 caps 01/16/21 amoxicillin 875 mg-potassium 1 tab PO Q12H 5 days #10 tabs 04/17/21 clavulanate 125 mg tablet (Augmentin) omeprazole 20 mg capsule,delayed 20 mg PO BID #28 caps 09/29/21 release ondansetron 4 mg disintegrating 4 mg PO Q8H PRN nausea and 09/29/21 tablet vomiting #20 tabs naproxen 500 mg tablet 500 mg PO BID 7 days #14 tabs 03/17/23 ondansetron 4 mg disintegrating 4 mg PO Q8H 3 days #9 tabs 03/17/23 tablet prednisone 20 mg tablet 20 mg PO DAILY 7 days #7 tabs 03/17/23 tamsulosin 0.4 mg capsule 0.4 mg PO DAILY #7 caps 03/17/23 Allergies Allergy/AdvReac Type Severity Reaction Status Date / Time No Known Allergies Allergy Verified 09/29/21 04:03 Review of Systems Constitutional: Constitutional: Reports no additional constitutional complaints, Denies chills, Denies fever(s) and Denies night sweats Eyes: Eyes: Reports no additional eye complaints, Denies blurry vision, Denies change in vision, Denies diplopia, Denies eye discharge, Denies loss of vision and Denies eye pain ENT: Denies dizziness Cardiovascular: Cardiovascular: Reports no additional cardiovascular complaints, Denies chest pain, Denies lightheadedness, Denies Loss of Consciousness and Denies dyspnea Respiratory: Respiratory: Reports no additional respiratory complaints and Denies dyspnea Gastrointestinal: Gastrointestinal: Reports no additional gastrointestinal complaints, Reports abdominal pain, Denies melena, Denies hematochezia, Denies change in bowel habits and Denies change in stool character Genitourinary: Genitourinary: Denies hematuria, Denies urinary frequency, Denies dysuria, Reports flank pain, Denies urinary incontinence, Denies urinary hesitancy and Denies urinary urgency Musculoskeletal: Musculoskeletal: Reports no additional musculoskeletal complaints, Reports back pain, Denies numbness and Denies tingling Neurologic: Denies dizziness, Denies loss of vision, Denies numbness and Denies tingling Psychiatric: Psychiatric: Reports no additional psychiatric complaints Endocrine: Endocrine: Reports no additional endocrine complaints Hematologic/Lymphatic: Hematologic/Lymphatic: Reports no additional hematologic/lymphatic complaints Allergic/Immunologic: Allergic/Immunologic: Reports no additional allergic/immunologic complaints PMFSH Past Medical History Attestation statement: The following information was validated with the patient. Source: old records reviewed and nursing notes reviewed Medical History No pertinent past medical history Surgical History S/P appendectomy Social History Social History Alcohol intake: never Patient Tobacco Use Status: Never used Tobacco Advance Directives: No Physical Exam ED Vital Signs: Vital Signs - 24 hr 03/17/23 14:30 Temperature 98.2 F Pulse Rate 76 Respiratory Rate 18 Blood Pressure 109/69 Pulse Oximetry 97 Oxygen Delivery Method Room Air BMI result Body Mass Index 29.7 Const General: cooperative, no acute distress, alert and awake Nutritional Appearance: well nourished Orientation/consciousness: patient oriented x3 Limitations: no limitations HENMT Head: Yes normal to inspection and Yes atraumatic Ears: hearing grossly normal bilaterally and external ears normal General nose exam: Normal external nose present, no nasal discharge noted and no epistaxis Face and sinus: Yes normal facial exam, No abrasion and No laceration Mouth: Normal oral and palatal mucosa present, no drooling and no muffled voice Eyes General: appearance normal, both eyes and all related structures Periorbital: periorbital findings normal Eyelids: Yes eyelids normal Conjunctivae: conjunctivae normal Pupils: Equal, round and reactive pupils present EOM: EOMs intact bilaterally Neck Neck: Yes normal visual inspection, Yes full ROM and Yes no lymphadenopathy Chest Chest palpation & inspection: normal inspection of the chest Resp Effort & Inspection: normal respiratory effort and able to speak in complete sentences Auscultation: clear to auscultation bilaterally Cardio Rate: regular rate Rhythm: regular rhythm GI Inspection: Yes normal to inspection Palpation (GI): Soft to palpation, not firm, nontender and no guarding General: Yes CVA tenderness on the right Back/Spine/Pelvis Back: CVA tenderness Neuro General: patient oriented x3 and moves all extremities Cranial nerves: Yes Equal, round and reactive pupils present Cognition (Neuro): normal cognition Motor exam (neuro): 5/5 motor strength present throughout Sensory Exam: Normal double simultaneous stimulation for sensation Coordination: [id number] test normal Extrem General: Yes normal to inspection, Yes full ROM and Yes capillary refill normal Psych Appearance: grossly normal Mental Status: mental status grossly normal Affect: normal affect Attitude: cooperative Thought process: Normal thought process present Thought content: Normal thought content present Insight: Good insight present (Psych) Medical Decision Making Medical Decision Making MDM Narrative: Patient is a 27 year old assigned female at with no reported medical history presenting to the emergency department today with right sided flank pain. Patient's physical exam was as noted in the physical exam portion of this note. Patient's blood work was unremarkable. Patient's urine showed no acute process. Patient's CT abdomen pelvis showed a 1cm obstruction stone in the right ureterovesical junction with moderate right sided hydronephrosis. I spoke to Dr. Lovett who recommended the patient be discharged home with flomax, prednisone, naproxen, and zofran, then proceed to her office at 11:15am on 03/20/2023 for a pre-procedural visit for a planned procedure on 03/21/2023. I explained my physical exam findings as well as all test results to the patient. I answered all questions asked by the patient. I stressed the importance of the patient taking her medication as prescribed. I stressed the importance of the patient following up with her primary care provider and the urologist as scheduled. I stressed the importance of the patient returning to the emergency department immediately if her symptoms were to worsen or if she were to develop any dizziness, shortness of breath, difficulty breathing, chest pain, blurry vision, loss of vision, nausea, vomiting, abdominal pain, fever, chills, back pain, or any other complaints. Patient verbalized agreement and understanding with this treatment plan and discharge. Differential Diagnosis Differential Diagnoses: The differential diagnosis associated with the presentation includes Obstructing kidney stone Kidney stone Flank pain UTI Admission/Observation Consideration of admission/observation: Escalation of care including admission/observation considered Patient would have been admitted to the hospital had her work up had any findings where hospital admission was appropriate and her clinical presentation warranted hospital admission. Consult Healthcare Provider Management of the patient was discussed with: Dish Technician (spoke with the urologist as noted in the [facility] Rationale portion of this note.) Lab Data [facility] Lab Attestation statement: I reviewed the patient's lab results. My interpretation of these studies and their corresponding values is that they are grossly normal. 03/17/23 15:02 03/17/23 15:02 Labs: Lab Results 03/17/23 03/17/23 Range/Units 15:02 16:34 WBC 9.9 (4.8-10.8) X10*3/uL RBC 4.32 (4.20-5.50) X10*6/uL Hgb 12.9 (12.0-16.0) g/dl Hct 38.7 (37.0-47.0) % MCV 89.6 (80.0-98.0) fL MCH 29.9 (27.0-33.0) pg MCHC 33.3 (31.0-35.0) g/dl RDW 12.5 (11.0-16.0) % Plt Count 344 (160-400) X10*3/uL MPV 10.1 (9.4-12.3) fL Immature Gran % (Auto) 0.2 (0.0-0.4) % Neut % (Auto) 54.7 (45-73) % Lymph % (Auto) 35.2 (20-40) % [place] % (Auto) 6.7 (2-11) % Eos % (Auto) 2.8 (0-4) % Baso % (Auto) 0.4 (0-2) % Lymph # (Auto) 3.5 (1.2-4.9) X10*3/uL [place] # (Auto) 0.7 (0.1-1.2) X10*3/uL Eos # (Auto) 0.3 (0.0-0.4) X10*3/uL Baso # (Auto) 0.0 (0.0-0.2) X10*3/uL Abs Immat Gran (auto) 0.02 (0.00-0.03) X10*3/uL Absolute Neuts (auto) 5.4 (2.0-8.3) x10*3/uL Absolute Nucleated RBC 0.000 (0.0-0.012) X10*3/uL Nucleated RBC % (auto) 0.0 (0.0-0.2) /100WBC Sodium 141 (135-145) mmol/L Potassium 4.0 (3.3-5.1) mmol/L Chloride 109 H (96-108) mmol/L Carbon Dioxide 28 (22-29) mmol/L Anion Gap 8 L (12-20) BUN 14 (9-16) mg/dL Creatinine 0.87 (0.5-1.4) mg/dL Estim Creat Clear Calc 70.8 Estimated GFR > 60 Random Glucose 90 (60-115) mg/dL Calcium 9.1 (8.4-10.2) mg/dL Magnesium 2.1 (1.6-2.6) mg/dL Total Bilirubin 0.6 (0.0-1.0) mg/dL AST 17 (5-31) U/L ALT 15 (0-31) U/L Alkaline Phosphatase 101 (39-117) U/L Total Protein 7.5 (6.5-8.0) g/dL Albumin 4.3 (3.5-5.0) g/dL Beta HCG, Quant < 2 mIU/mL Urine Color Yellow Urine Appearance Clear Urine pH 7.5 (5.0-9.0) Ur Specific [place] 1.020 (1.005-1.025) Urine Protein Negative (Neg-Trace) mg/dL Urine Glucose (UA) Negative (Negative) mg/dL Urine Ketones Negative (Negative) mg/dL Urine Blood Negative (Negative) Urine Nitrite Negative (Negative) Ur Leukocyte Esterase Negative (Negative) Independent Interpretation I performed an independent interpretation of an: CT Scan Interpretation: My interpretation is in agreement with the radiologist's impression of this imaging study. EXAMINATION: CT ABDOMEN AND PELVIS WITHOUT CONTRAST CLINICAL INFORMATION: Right flank pain COMPARISON: None available. TECHNIQUE: Multidetector volumetric imaging was performed from the superior aspect of the liver through the pubic symphysis. Sagittal and coronal reformatted images were obtained on the technologist's workstation. This CT examination was performed using dose optimization techniques as appropriate, variously including the following: *Automated exposure control *Adjustment of mA and/or kV according to patient size (this includes techniques or standardized protocols for targeted exams where dose is matched to indication/reason for exam; i.e. extremities or head) *Use of iterative reconstruction technique DLP: 459 mGy-cm FINDINGS: LUNG BASES: The visualized lung bases are unremarkable. LIVER, GALLBLADDER, AND BILIARY TREE: The liver is normal in size, shape, and attenuation. No focal hepatic lesion or biliary ductal dilatation is present. The gallbladder is unremarkable with no evidence of radiopaque gallstones, gallbladder wall thickening, or obvious pericholecystic inflammatory changes. PANCREAS: Unremarkable. SPLEEN: Unremarkable. ADRENAL GLANDS: Unremarkable. KIDNEYS AND URETERS: Right kidney: There is a 1 cm stone at the right ureterovesical junction. This has a density measurement of 1243 Hounsfield units. This stone lies 10 cm from the posterior skin line. This is causing moderate hydronephrosis of the right collecting system. No additional stone in the kidney or the ureter. Left kidney: No stone in the kidney or the ureter. No hydronephrosis. BLADDER: Unremarkable. GASTROINTESTINAL TRACT: The small and large bowel are unremarkable. The appendix is surgically absent. ABDOMINAL WALL: No significant hernia is appreciated. LYMPH NODES: Normal. VASCULAR: Unremarkable. PELVIC VISCERA: Uterus is anteverted. IUD in endometrial cavity. Right adnexal cyst/follicle measuring 4 x 3.5 cm. This is almost certainly benign. No follow-up imaging recommended. Density measurement 20 Hounsfield units. OSSEOUS STRUCTURES: Unremarkable. CT/CT abdomen pelvis wo IV con IMPRESSION: 1. Moderate hydronephrosis of right kidney due to a 1 cm stone at the right ureterovesical junction. 2. 4 cm right adnexal cyst/follicle. No follow-up imaging recommended. IUD in endometrial cavity. 3. Status post appendectomy. Fleischner guidelines were followed. Dictated By: Eusebio Anaya MD Signed By: Electronically signed by Eusebio Anaya MD 03/17/23 6398 Radiology Impression Discussion of test interpretation with radiology: I have reviewed the radiologist's reading. Prescription Management I considered prescription management with: Pain Medication (patient prescribed pain medication.) Critical Care Time Critical Care Time Critical Care Time: Yes Total Critical Care Time: 45 Attestation: I spent 45 minutes of Critical Care Time with this patient. This does not include time spent on separately reported billable procedures. Discharge Plan Discharge Clinical Impression: Kidney stone Patient Disposition: Home, Self-Care Instructions: Kidney Stones (ED) Additional Instructions: Follow up with your primary care provider. Follow up with Dr. Martinez on 03/20/2023 at 11:15am. Return to the emergency department immediately if your symptoms worsen or if you develop any dizziness, shortness of breath, difficulty breathing, chest pain, blurry vision, loss of vision, nausea, vomiting, abdominal pain, fever, chills, back pain, or any other complaints. Prescriptions: New prednisone 20 mg tablet 20 mg PO DAILY 7 Days Qty: 7 0RF tamsulosin 0.4 mg capsule 0.4 mg PO DAILY Qty: 7 0RF ondansetron 4 mg tablet,disintegrating 4 mg PO Q8H 3 Days Qty: 9 0RF naproxen 500 mg tablet 500 mg PO BID 7 Days Qty: 14 0RF No Action cephalexin 500 mg capsule 500 mg PO QID 7 Days Qty: 28 0RF omeprazole 20 mg capsule,delayed release(DR/EC) 20 mg PO BID Qty: 28 0RF Rx Instructions: take twice a day for 7 days then daily for 2 weeks ondansetron 4 mg tablet,disintegrating 4 mg PO Q8H PRN (Reason: nausea and vomiting) Qty: 20 0RF amoxicillin-pot clavulanate [Augmentin] 875-125 mg tablet 1 tab PO Q12H 5 Days Qty: 10 0RF Referrals: [facility] [place] Family Medicine [Provider Group] (Call to establish and follow up with a primary care provider. If you already have a primary care provider, please follow up with them. ) [facility] [place] Primary Care, [facility] [Provider Group] (Call to establish and follow up with a primary care provider. If you already have a primary care provider, please follow up with them. ) [facility] [place] Primary Care,[facility] [Provider Group] (Call to establish and follow up with a primary care provider. If you already have a primary care provider, please follow up with them. ) [facility] [place] Urology Services [Provider Group] (Go to your appointment at 11:15am on 03/20/2023.) Stand Alone Forms: Work/School Release Print Language: Nauruan
[2023-03-17 15:09] LABS: MANUAL DIFF FLAG NO
[2023-03-17 15:21] LABS: Basophils Percent Auto 0.4 % (0-2); Eosinophils Absolute Auto 0.3 X10*3/uL (0.0-0.4); Eosinophils Percent Auto 2.8 % (0-4); Hematocrit 38.7 % (37.0-47.0); Hemoglobin 12.9 g/dl (12.0-16.0); Imm Gran Abs Auto 0.02 X10*3/uL (0.00-0.03); Imm Gran Pct Auto 0.2 % (0.0-0.4); Lymphocytes Absolute Auto 3.5 X10*3/uL (1.2-4.9); Lymphocytes Percent Auto 35.2 % (20-40); Mean Corpuscular HGB Conc 33.3 g/dl (31.0-35.0); Mean Corpuscular Hemoglobin 29.9 pg (27.0-33.0); Mean Corpuscular Volume 89.6 fL (80.0-98.0); Mean Platelet Volume 10.1 fL (9.4-12.3); Monocytes Absolute Auto 0.7 X10*3/uL (0.1-1.2); Monocytes Percent Auto 6.7 % (2-11); Neutrophils Absolute Auto 5.4 x10*3/uL (2.0-8.3); Neutrophils Percent Auto 54.7 % (45-73); Platelet Count 344 X10*3/uL (160-400); Red Blood Count 4.32 X10*6/uL (4.20-5.50); Red Cell Distribution Width 12.5 % (11.0-16.0); White Blood Count 9.9 X10*3/uL (4.8-10.8)
[2023-03-17 15:32] LABS: Alanine Aminotransferase 15 U/L (0-31); Albumin Level 4.3 g/dL (3.5-5.0); Alkaline Phosphatase 101 U/L (39-117); Anion Gap 8 (12-20); Aspartate Amino Transferase 17 U/L (5-31); Bilirubin Total 0.6 mg/dL (0.0-1.0); Blood Urea Nitrogen 14 mg/dL (9-16); Calcium 9.1 mg/dL (8.4-10.2); Carbon Dioxide 28 mmol/L (22-29); Chloride 109 mmol/L (96-108); Creatinine Clr Calc Pharmacy 70.8; Estimated Glomerular Filt Rate > 60; Glucose Random 90 mg/dL (60-115); HCG Quantitative < 2 mIU/mL; Magnesium 2.1 mg/dL (1.6-2.6); Sodium 141 mmol/L (135-145); Total Protein 7.5 g/dL (6.5-8.0)
[2023-03-17 16:43] LABS: Appearance Urine Clear; Color Urine Yellow; Glucose Urine UA Negative (Negative); Leukocyte Esterase Urine Negative (Negative); Nitrite Urine Negative (Negative); PH 7.5 (5.0-9.0); Urine Blood Negative (Negative); Urine Ketones Negative (Negative); Urine Protein Negative (Neg-Trace)
== END 2023-03-17 18:28 | disposition home or self-care (01) ==
PROVIDERS: Physician Assistant Medical; Emergency Provider Emergency Medicine
DX: N20.0 Calculus of kidney (principal); M54.50 Low back pain, unspecified; R10.9 Unspecified abdominal pain; Z79.899 Other long term (current) drug therapy
CPT/HCPCS: 36415; 74176; 80053; 81003; 83735; 84702; 85025; 99282; 99284

== ENCOUNTER 2023-03-20 11:10 | Outpatient (AMB) | payer OTHER, SELFPAY ==
--- NOTE | 2023-03-20 13:06 | A.OFFVIS_ITS ---
Intake Intake Visit Reasons: ER-right obstructing stone Allergies No Known Allergies Allergy (Verified 09/29/21 04:03) HPI HPI Comments History of Present Illness Details Velia is here for new patient evaluation for Nephrolithiasis. She was seen in the ED last week with right flank pain. CTAP - 1 cm UPJ stone with mild hydro. The patient states this her first episode of having a kidney stone. She states she has seen intermittent gross hematuria, denies dysuria, admits to frequent UTI's She denies any dizziness, lightheadedness, nausea, vomiting, fever, chills, 03/20/23 Consent obtained. Plan for Cystoscopy, Right ureteroscopy, laser lithotripsy, ureteral stent. Risks discussed included but not limited to, possible need to repeat procedure if stone is not completely fragmented, Irritative voiding symptoms, bladder spasms, urgency, blood in urine. [facility] Medical History No pertinent past medical history Surgical History S/P appendectomy Social History Alcohol intake: never Patient Tobacco Use Status: Never used Tobacco Review of Systems Const All systems reviewed & are unremarkable except as noted in HPI and below Reports no additional complaints Eyes Reports no additional complaints ENT Reports no additional complaints Card Denies dyspnea Resp Denies cough and Denies dyspnea GI Reports no additional complaints Reports no additional complaints Musc Reports no additional complaints Skin/Breast Denies rash and Denies unusual bruising Neuro Reports no additional complaints Psych Reports no additional complaints Endo Reports no additional complaints Suresh/Lymph Reports no additional complaints Aller/Immun Reports no additional complaints Physical Exam Const General: cooperative, healthy appearing and no acute distress Orientation/consciousness: patient oriented x3 HEENT Head: Yes normal to inspection, Yes normocephalic and Yes atraumatic Eyes Conjunctivae: conjunctivae normal Neck Neck: Yes normal visual inspection and Yes trachea midline Chest Chest palpation & inspection: normal inspection of the chest Resp Effort & Inspection: normal respiratory effort Cardio Rate: regular rate GI Inspection: Yes normal to inspection Skin General skin exam: no rashes or lesions noted Neuro General: patient oriented x3 Extrem General: No edema Psych Appearance: grossly normal Results Reviewed Results Reviewed: Date of Service: 03/17/23 EXAMINATION: CT ABDOMEN AND PELVIS WITHOUT CONTRAST CLINICAL INFORMATION: Right flank pain COMPARISON: None available. TECHNIQUE: Multidetector volumetric imaging was performed from the superior aspect of the liver through the pubic symphysis. Sagittal and coronal reformatted images were obtained on the technologist's workstation. This CT examination was performed using dose optimization techniques as appropriate, variously including the following: *Automated exposure control *Adjustment of mA and/or kV according to patient size (this includes techniques or standardized protocols for targeted exams where dose is matched to indication/reason for exam; i.e. extremities or head) *Use of iterative reconstruction technique DLP: 459 mGy-cm FINDINGS: LUNG BASES: The visualized lung bases are unremarkable. LIVER, GALLBLADDER, AND BILIARY TREE: The liver is normal in size, shape, and attenuation. No focal hepatic lesion or biliary ductal dilatation is present. The gallbladder is unremarkable with no evidence of radiopaque gallstones, gallbladder wall thickening, or obvious pericholecystic inflammatory changes. PANCREAS: Unremarkable. SPLEEN: Unremarkable. ADRENAL GLANDS: Unremarkable. KIDNEYS AND URETERS: Right kidney: There is a 1 cm stone at the right ureterovesical junction. This has a density measurement of 1243 Hounsfield units. This stone lies 10 cm from the posterior skin line. This is causing moderate hydronephrosis of the right collecting system. No additional stone in the kidney or the ureter. Left kidney: No stone in the kidney or the ureter. No hydronephrosis. BLADDER: Unremarkable. GASTROINTESTINAL TRACT: The small and large bowel are unremarkable. The appendix is surgically absent. ABDOMINAL WALL: No significant hernia is appreciated. LYMPH NODES: Normal. VASCULAR: Unremarkable. PELVIC VISCERA: Uterus is anteverted. IUD in endometrial cavity. Right adnexal cyst/follicle measuring 4 x 3.5 cm. This is almost certainly benign. No follow-up imaging recommended. Density measurement 20 Hounsfield units. OSSEOUS STRUCTURES: Unremarkable. IMPRESSION: 1. Moderate hydronephrosis of right kidney due to a 1 cm stone at the right ureterovesical junction. 2. 4 cm right adnexal cyst/follicle. No follow-up imaging recommended. IUD in endometrial cavity. 3. Status post appendectomy. Assessment & Plan Assessment & Plan (1) Right renal stone: Code(s): N20.0 - Calculus of kidney (2) Hydronephrosis: Code(s): N13.30 - Unspecified hydronephrosis Plan Plan for Cystoscopy, Right ureteroscopy, laser lithotripsy, ureteral stent. Risks discussed included but not limited to, possible need to repeat procedure if stone is not completely fragmented, Irritative voiding symptoms, bladder spasms, urgency, blood in urine. Patient Instructions: The patient had an opportunity to ask questions regarding treatment plan. All questions were answered. Imaging, Laboratory studies and physical exam results were discussed and reviewed in detail. No major barriers to understanding were identified. The patient expressed understanding and agreement with the above treatment plan. The patient is aware they should contact our office by phone for worsening of their current condition or the appearance of new symptoms. Compliance is encouraged with any medications and followup testing that is ordered. It is a privilege to be allowed the opportunity to participate in the urologic care of your patient. If you have any questions or concerns regarding treatment for the above conditions please do not hesitate to contact me. The office telephone contact is [phone]. This note is constructed in part using voice recognition software. While every effort has been made to ensure accuracy batter depositor errors may have been included. Yours sincerely, Trice Ferrer MD Coding Level of Care Code New Pt Level 4 (13292) Diagnoses Right renal stone N20.0 Hydronephrosis N13.30
== END 2023-03-20 11:47 | disposition home or self-care (01) ==
PROVIDERS: Visit Provider Urology
DX: N20.0 Calculus of kidney (principal); N13.30 Unspecified hydronephrosis
CPT/HCPCS: 99204

== ENCOUNTER → 2023-03-20 11:10 | Outpatient (BNVA) | payer OTHER, SELFPAY | PROVIDERS: Visit Provider Urology | DX: N20.0 Calculus of kidney (principal); N13.30 Unspecified hydronephrosis | CPT/HCPCS: 99202 ==

== ENCOUNTER 2023-03-21 10:43 | Day surgery (SDC) | payer OTHER, SELFPAY ==
[2023-03-21] VITALS (10 sets, daily range): BP systolic 92–116; BP diastolic 43–67; PULSE 75–97; RESP 16; TEMP 36.3–36.4; O2SAT 95–99; BMI 29.3
--- NOTE | ~2023-03-21 | FL_ITS ---
EXAMINATION: XR FLUOROSCOPY WITH IMAGES CLINICAL INFORMATION: Right stone. COMPARISON: None available. TECHNIQUE: Fluoroscopy Supervised By: Dr. Ferrer. Fluoroscopy Time: 19.7 seconds. Cumulative Dose: 4.80 mGy. DAP: Gycm2. Images: 4. FINDINGS: Initial image demonstrates contrast right renal collecting system and proximal ureter. There may be a filling defect/stone in the right UPJ region. Next Image demonstrates a wire in the right ureter. Final images demonstrate a right internal ureteral stent. FL/FL guidance in OR IMPRESSION: Fluoroscopy guidance for retrograde exam and right internal ureteral stent placement
[2023-03-21 11:23] LABS: UPreg QC Valid YES; Urine Pregnancy NEGATIVE (NEGATIVE)
[2023-03-21] MEDS: Lactated Ringers 1,000 ML 100 ML IVCONT (11:35)
--- NOTE | 2023-03-21 12:39 | HO.ANESPROP2 ---
HPI - Anesthesia Eval Consult details Narrative: Urethral stone PMFSH Active Problems Active Problems: All Active Problems (Updated 03/20/23 @ 13:11 by Trice Ferrer MD) Hydronephrosis (Acute) Right renal stone (Acute) Past Medical History Medical History (Updated 03/20/23 @ 13:11 by Trice Ferrer MD) No pertinent past medical history Family History Family history of problems with anesthesia: No Surgical History Surgical History (Updated 03/21/23 @ 11:11 by Ema Sherman RN) History of 2 sections S/P appendectomy History of Problems with Anesthesia: No Social History Social History Alcohol intake: never Patient Tobacco Use Status: Never used Tobacco Use of substances other than those prescribed or required for medical reasons: No Are you DNR?: No Advance Directives: No Advance Directives Information Provided: Yes Meds Allergies Allergy/AdvReac Type Severity Reaction Status Date / Time No Known Allergies Allergy Verified 09/29/21 04:03 Active Medications: Current Medications Lactated Ringer's (Lr) 1,000 mls @ 100 mls/hr IVCONT .Q10H TONE Last Admin: 03/21/23 11:35 Dose: 100 mls/hr Exam Exam Date and Time: March 21, 2023 1239 Height,Weight and Vital Signs: Height 4 ft 8 in Weight 59.194 kg Last Vital Signs Temp 97.5 F 03/21/23 11:26 Pulse 75 03/21/23 11:26 Resp 16 03/21/23 11:26 BP 110/55 L 03/21/23 11:26 Pulse Ox 99 03/21/23 11:26 O2 Del Method Room Air 03/21/23 11:26 Pertinent Lab Results Pertinent Lab Results: Laboratory Tests 03/21/23 11:06 Urine Test NEGATIVE Airway Mallampati Class: II TM Dist: >3cm Neck ROM: Full Heart: rrr Lungs: cta Assessment and Plan Assessment Anesthesia Assessment: Anesthesia Plan Discussed and Chart Reviewed Final Anesthetic Review Family History of Problems with Anesthesia: No History of Problems with Anesthesia: No NPO: Yes ASA Class: I Final Preanesthetic Review: No Changes in Pt Med Stat, Meds/Allgs Chart Reviewed, Consent Obtained/Reviewed and Anes Risks/Benef Reviewed Patient Risk: Low Procedure Risk: Low Anesthetic Plan Anesthetic Plan: GA and Agree w/ Assess. and Plan Disposition: Standard PACU
--- NOTE | 2023-03-21 12:58 | MHC.SHP ---
Pre-Procedural Eval Section A Date of Service: 03/21/23 The patient is an INPATIENT: No The History & Physical has been completed within 30 days and I have reviewed it.: Yes Section B Chief Complaint: Calculus of kidney Allergies: Allergies Allergy/AdvReac Type Severity Reaction Status Date / Time No Known Allergies Allergy Verified 09/29/21 04:03 Plan Diagnosis/Plan: Unchanged I have reviewed the history and physical and performed a pertinent physical examination on my patient. No changes have occurred unless specified. Plan for Cystoscopy, right ureteroscopy, laser lithotripsy, ureteral stent. Risks discussed included but not limited to, possible need to repeat procedure if stone is not completely fragmented, Irritative voiding symptoms, bladder spasms, urgency, blood in urine. Time Spent With Patient Time: Total time managing care of this patient today ____ minutes.
--- NOTE | 2023-03-21 13:22 | HO.ANESPROP2 ---
[facility] Active Problems Active Problems: All Active Problems (Updated 03/20/23 @ 13:11 by Trice Ferrer MD) Hydronephrosis (Acute) Right renal stone (Acute) Past Medical History Medical History No pertinent past medical history Functional capacity: independent ambulation Patient : No Family History Family history of problems with anesthesia: No Surgical History Surgical History History of 2 sections S/P appendectomy History of Problems with Anesthesia: No Social History Social History Alcohol intake: never Patient Tobacco Use Status: Never used Tobacco Use of substances other than those prescribed or required for medical reasons: No Are you DNR?: No Advance Directives: No Advance Directives Information Provided: Yes Meds Allergies Allergy/AdvReac Type Severity Reaction Status Date / Time No Known Allergies Allergy Verified 09/29/21 04:03 Active Medications: Current Medications Fentanyl (Fentanyl Citrate/Pf 100 Mcg/2 Ml Vial) 25 mcg IVPUSH Q5M PRN; Protocol PRN Reason: Pain, Moderate(Pain Scale 4-6) Lactated Ringer's (Lr) 1,000 mls @ 100 mls/hr IVCONT .Q10H TONE Last Admin: 03/21/23 11:35 Dose: 100 mls/hr Cefazolin Sodium/Dextrose (Ancef) 2 gm in 50 mls @ 100 mls/hr IV PREOP ONE Stop: 03/21/23 13:26 Oxycodone HCl (Oxycodone Hcl Immed Release 5 Mg Tablet) 5 mg PO ONCE PRN PRN Reason: Pain, Severe (Pain Scale 7-10) Exam Exam Date and Time: March 21, 2023 1322 Height,Weight and Vital Signs: Height 4 ft 8 in Weight 59.194 kg Last Vital Signs Temp 97.5 F 03/21/23 11:26 Pulse 75 03/21/23 11:26 Resp 16 03/21/23 11:26 BP 110/55 L 03/21/23 11:26 Pulse Ox 99 03/21/23 11:26 O2 Del Method Room Air 03/21/23 11:26 Pertinent Lab Results Pertinent Lab Results: Laboratory Tests 03/21/23 11:06 Urine Test NEGATIVE Airway Mallampati Class: II TM Dist: >3cm Neck ROM: Full Heart: RRr Lungs: CTA Assessment and Plan Assessment Anesthesia Assessment: Anesthesia Plan Discussed Final Anesthetic Review Family History of Problems with Anesthesia: No History of Problems with Anesthesia: No ASA Class: II Final Preanesthetic Review: Meds/Allgs Chart Reviewed, Consent Obtained/Reviewed and Anes Risks/Benef Reviewed Patient Risk: Low Procedure Risk: Low Anesthetic Plan Anesthetic Plan: GA Disposition: Standard PACU
--- NOTE | 2023-03-21 14:19 | W.PM.OPN ---
Operative Note Operative Note Date of Service: 03/21/23 Narrative: PreOperative Diagnosis:?? Right proximal ureteral stone Post Operative Diagnosis:?? Right proximal ureteral stone Procedure: - cystoscopy, right retrograde, right ureteroscopy laser lithotripsy stent insertion, 6 [place] by 24 cm FLEXIBLE DISPOSABLE URETEROSCOPE Surgeon:?Dr Trice Ferrer Anesthesia:? General Procedure: After informed consent was verified the patient was brought to the operating placed on the OR table in supine position.? General Anesthesia was administered per protocol.? The patient was placed in lithotomy position, prepped and draped in the usual sterile fashion.? Safety pause time-out and side of surgery confirmed.? Antibiotics confirmed. 2% lidocaine jelly 10 mL was passed transurethrally. A 22 [place] cystoscope was inserted transurethrally, The bladder was visualized.? Both ureteric orifices were in normal position. An open-ended ureteral catheter was passed into the ureteral orifice and a retrograde examination was performed. There was a filling defect in the right ureter and dilatation of the proximal ureter and renal pelvis and calices. A guidewire was passed through the ureteral catheter into the kidney. The balloon dilator size 12 fr x 4 cm was passed over the guide -wire the balloon was inflated to 10 mmHg and the intramural ureter was dilated for 30 seconds. The balloon was deflated and removed. After removing the balloon dilator a 2nd guidewire was then passed into the kidney to use as a safety. The cystoscope was removed, leaving both guidewires in place. One guidewire was used as the safety and was attached to the draping. The flexible disposable ureteroscope was passed over one of the guidewires to the level of the stone in the ureter. One guidewire was then removed. Laser lithotripsy of the stone was done using the fiber with a settings 0.8 joules by 6 hertz ALTERNATING 0.5 by 20 hertz, total joules 1425. There was good fragmentation of the stone. The 0 degree basket was passed through the ureteroscope, to remove fragments to send for analysis. The ureteroscope was removed. The cystoscope was passed over the safety guidewire. A? 6 [place] by 24 cm stent was placed into the ureter and renal pelvis under a combination of fluoroscopy and direct visualization. The bladder was emptied.? The rigid cystoscope was removed. ? The patient tolerated the procedure well and was brought to the recovery room in stable condition. Complications: None Drains: Ureteral stent as dictated above
[2023-03-21] MEDS: oxyCODONE HCl Immed Release 5 MG TABLET PO (14:47)
[2023-03-21] MEDS: Phenazopyridine HCL 200 MG TABLET PO (14:47)
[2023-03-21] MEDS: fentaNYL citrate/PF 100 MCG/2 ML VIAL 25 MCG IVPUSH (14:50)
[2023-03-28 19:39] LABS: Stone Source RIGHT URETERAL STONE
== END 2023-03-21 15:52 | disposition home or self-care (01) ==
PROVIDERS: Nurse Practitioner; Visit Provider Urology
PROC: (CPT 52356; principal; 2023-03-21 12:30)
DX: N20.0 Calculus of kidney (principal); N20.1 Calculus of ureter; N13.30 Unspecified hydronephrosis
CPT/HCPCS: 52356; 81025; 82365; 88300; C1726; C1758; C1769; C2617; J0690; J1100; J1885; J2250; J2371; J2405; J2704; J3010; Q9967

== ENCOUNTER → 2023-03-21 10:43 | Outpatient (BNV) | payer OTHER, SELFPAY | PROVIDERS: Visit Provider Urology | DX: N20.0 Calculus of kidney (principal); Z96.0 Presence of urogenital implants | CPT/HCPCS: 52352 ==

== ENCOUNTER 2023-03-24 09:02 | Outpatient (REF) | payer OTHER, SELFPAY ==
--- NOTE | ~2023-03-24 | XR_ITS ---
EXAMINATION: XR ABDOMEN KUB CLINICAL INDICATION: Unspecified hydronephrosis. COMPARISON: 03/17/2023 CT abdomen and pelvis. TECHNIQUE: 2 AP views of the abdomen. FINDINGS: Stent courses from the level overlying the right renal pelvis to the level of the bladder. IUD in the pelvis. Nonobstructive bowel gas pattern. Moderate amount of stool in the colon. Visualization of the bilateral kidneys is limited due to overlying bowel. Mild rightward curvature of the lumbar spine. Small 5 mm calcific/sclerotic density overlies the right transverse process of the L4 vertebral body. There are faint ill-defined possible calcifications overlying the stent on the right at this level. Horizontal 5 mm linear density just medial to the distal stent on one view, not visible on the other view. XR/XR KUB IMPRESSION: Possible calcifications along the mid level of the stent and overlying the pelvis as detailed above.
== END 2023-03-24 09:03 | disposition home or self-care (01) ==
LOC: HO.XRAY 09:02
PROVIDERS: Visit Provider Urology
DX: N20.0 Calculus of kidney (principal); N13.30 Unspecified hydronephrosis
CPT/HCPCS: 74018

== ENCOUNTER 2023-03-27 13:17 | Outpatient (AMB) | payer OTHER, SELFPAY ==
--- NOTE | 2023-03-27 13:38 | MHC.OFFVIS ---
Intake Intake Visit Reasons: cysto stent removal Intake Note: Patient is Present for Cystoscopy/Stent Removal Urology Med: Tamsulosin, Oxybutynin Antibiotic Allergy: none Blood Thinner:none URO- G Disposable Cystoscope lot:[id number] exp: 10/19/2024 Allergies No Known Allergies Allergy (Verified 03/27/23 13:39) HPI HPI Comments History of Present Illness Details Velia is here for follow up. She is s/p right ureteroscopy laser litho UPJ stone and insertion of stent. She was seen in the ED with right flank pain. CTAP - 1 cm UPJ stone with mild hydro. The patient states this her first episode of having a kidney stone. She is post . She has not been tolerating the stent well, she complains of right sided pain. 03/24/23 -- KUB reviewed - 5 mm calcific density noted L4 along the stent I have discussed at length diet modification to decrease risk of forming more kidney stones. I have discussed low oxalate diet and specific foods to avoid including certain green leafy vegetables, chocalate, nuts, tea, beets, rubarb; low sodium, decreased use of animal protein and the importance of hydration drinking up to 2-2.5 liters of fluids and use of adding lemon to water to increase citrate in the diet. A pamphlet is also provided today. Metabolic oakes in the future, 24 hr urine discussed. 03/20/23 Consent obtained. Plan for Cystoscopy, Right ureteroscopy, poosible laser lithotripsy, ureteral stent exchange. Risks discussed included but not limited to, possible need to repeat procedure if stone is not completely fragmented, Irritative voiding symptoms, bladder spasms, urgency, blood in urine. ON LICENSE OF [facility] Medical History No pertinent past medical history Surgical History History of 2 sections S/P appendectomy Social History Alcohol intake: never Patient Tobacco Use Status: Never used Tobacco Review of Systems Const All systems reviewed & are unremarkable except as noted in HPI and below Reports no additional complaints Eyes Reports no additional complaints ENT Reports no additional complaints Card Denies dyspnea Resp Denies cough and Denies dyspnea GI Reports no additional complaints Reports no additional complaints Musc Reports no additional complaints Skin/Breast Denies rash and Denies unusual bruising Neuro Reports no additional complaints Psych Reports no additional complaints Endo Reports no additional complaints Suresh/Lymph Reports no additional complaints Aller/Immun Reports no additional complaints Physical Exam Const General: cooperative, healthy appearing and no acute distress Orientation/consciousness: patient oriented x3 HEENT Head: Yes normal to inspection, Yes normocephalic and Yes atraumatic Eyes Conjunctivae: conjunctivae normal Neck Neck: Yes normal visual inspection and Yes trachea midline Chest Chest palpation & inspection: normal inspection of the chest Resp Effort & Inspection: normal respiratory effort Cardio Rate: regular rate GI Inspection: Yes normal to inspection Skin General skin exam: no rashes or lesions noted Neuro General: patient oriented x3 Extrem General: No edema Psych Appearance: grossly normal Results AMB Urinalysis, Automated UA Leukoctes 500 Ashley/uL Last Edit by Lorena Gotti [facility] on 03/27/23 13:57 UA Nitrite Negative Last Edit by Lorena Gotti [facility] on 03/27/23 13:57 UA Urobilinogen 0.2 mg/dL Last Edit by Lorena Gotti A on 03/27/23 13:57 UA Protein 300 mg/dL Last Edit by Lorena Gotti [facility] on 03/27/23 13:57 UA pH 6.0 Last Edit by Lorena Gotti [facility] on 03/27/23 13:57 UA Blood 200 Frandy/uL Last Edit by Loerna Gotti [facility] on 03/27/23 13:57 UA Specific Mica 1.020 Last Edit by Lorena Gotti [facility] on 03/27/23 13:57 UA Ketone Negative Last Edit by Lorena Gotti [facility] on 03/27/23 13:57 UA Bilirubin 0 mg/dL Last Edit by Lorena Gotti [facility] on 03/27/23 13:57 UA Glucose 0 mg/dL Last Edit by Lorena Gotti [facility] on 03/27/23 13:57 Results Reviewed Results Reviewed: Laboratory Last Values Urine pH (Auto) 6.0 03/27/23 13:40 Specific Mica (Auto) 1.020 03/27/23 13:40 Urine Protein (Auto) 300 mg/dL 03/27/23 13:40 Glucose (UA)(Auto) 0 mg/dL 03/27/23 13:40 Urine Ketones (Auto) Negative 03/27/23 13:40 Urine Blood (Auto) 200 Frandy/uL 03/27/23 13:40 Urine Nitrite (Auto) Negative 03/27/23 13:40 Urine Bilirubin (Auto) 0 mg/dL 03/27/23 13:40 Urine Urobilinogen (Auto) 0.2 mg/dL 03/27/23 13:40 Leukocyte Esterase (Auto) 500 Ashley/uL 03/27/23 13:40 Assessment & Plan Assessment & Plan (1) Right renal stone: Code(s): N20.0 - Calculus of kidney (2) Hydronephrosis: Code(s): N13.30 - Unspecified hydronephrosis (3) Ureteral stent present: Code(s): Z96.0 - Presence of urogenital implants Plan Consent obtained. Plan for Cystoscopy, Right ureteroscopy, poosible laser lithotripsy, ureteral stent exchange. Risks discussed included but not limited to, possible need to repeat procedure if stone is not completely fragmented, Irritative voiding symptoms, bladder spasms, urgency, blood in urine. Orders: Orders AMB Urinalysis Automated Today Z13.9 - Encounter for screening, unspecified Patient Instructions: The patient had an opportunity to ask questions regarding treatment plan. All questions were answered. Imaging, Laboratory studies and physical exam results were discussed and reviewed in detail. No major barriers to understanding were identified. The patient expressed understanding and agreement with the above treatment plan. The patient is aware they should contact our office by phone for worsening of their current condition or the appearance of new symptoms. Compliance is encouraged with any medications and followup testing that is ordered. It is a privilege to be allowed the opportunity to participate in the urologic care of your patient. If you have any questions or concerns regarding treatment for the above conditions please do not hesitate to contact me. The office telephone contact is [phone]. This note is constructed in part using voice recognition software. While every effort has been made to ensure accuracy hardboard grinder errors may have been included. Yours sincerely, Trice Ferrer MD Coding Level of Care Code Est Pt Level 4 (37866) Diagnoses Right renal stone N20.0 Hydronephrosis N13.30 Ureteral stent present Z96.0
== END 2023-03-27 14:25 | disposition home or self-care (01) ==
PROVIDERS: Visit Provider Urology
DX: N20.0 Calculus of kidney (principal); N13.30 Unspecified hydronephrosis; Z96.0 Presence of urogenital implants; Z13.9 Encounter for screening, unspecified
CPT/HCPCS: 99214

== ENCOUNTER → 2023-03-27 13:17 | Outpatient (BNVA) | payer OTHER, SELFPAY | PROVIDERS: Visit Provider Urology | DX: N20.0 Calculus of kidney (principal); N13.30 Unspecified hydronephrosis; Z96.0 Presence of urogenital implants | CPT/HCPCS: 81003; 99212 ==

== ENCOUNTER 2023-03-28 11:06 | Day surgery (SDC) | payer OTHER, SELFPAY ==
[2023-03-28] VITALS (9 sets, daily range): BP systolic 103–131; BP diastolic 58–80; PULSE 64–80; RESP 16–18; TEMP 36.1–37.1; O2SAT 97–100; BMI 29.6
--- NOTE | ~2023-03-28 | FL_ITS ---
EXAMINATION: XR FLUOROSCOPY WITH IMAGES CLINICAL INFORMATION: Right urinary calculus. COMPARISON: CT of March 17, 2023 and fluoroscopy of March 21, 2023. TECHNIQUE: Fluoroscopy Supervised By: Dr. Ferrer. Fluoroscopy Time: 9 seconds. Cumulative Dose: 2.22 mGy. Images: 1. FINDINGS: Single image of the upper abdomen demonstrates a catheter or wire overlying the expected location of the upper pole of the right kidney. FL/FL guidance in OR IMPRESSION: Intraoperative fluoroscopy for urological procedure.
[2023-03-28 11:43] LABS: UPreg QC Valid YES
[2023-03-28 11:44] LABS: Urine Pregnancy NEGATIVE (NEGATIVE)
--- NOTE | 2023-03-28 12:13 | MHC.SHP ---
Pre-Procedural Eval Section A Date of Service: 03/28/23 The patient is an INPATIENT: No The History & Physical has been completed within 30 days and I have reviewed it.: Yes Section B Chief Complaint: s/p right ureteral stent, for hydronephrosis Allergies: Allergies Allergy/AdvReac Type Severity Reaction Status Date / Time No Known Allergies Allergy Verified 03/28/23 11:27 Plan Diagnosis/Plan: Unchanged I have reviewed the history and physical and performed a pertinent physical examination on my patient. No changes have occurred unless specified. Plan for Cystoscopy, right ureteroscopy, possible laser lithotripsy, possible ureteral stent exchange vs removal. Risks discussed included but not limited to, possible need to repeat procedure if stone is not completely fragmented, Irritative voiding symptoms, bladder spasms, urgency, blood in urine. Time Spent With Patient Time: Total time managing care of this patient today ____ minutes.
--- NOTE | 2023-03-28 12:25 | P.CONAN_ITS ---
[facility] Active Problems Active Problems: All Active Problems (Updated 03/27/23 @ 14:19 by Trice Ferrer MD) Ureteral stent present (Acute) Hydronephrosis (Acute) Right renal stone (Acute) Past Medical History Medical History No pertinent past medical history Family History Family history of problems with anesthesia: No Surgical History Surgical History History of 2 sections S/P appendectomy History of Problems with Anesthesia: No Social History Alcohol intake: never Patient Tobacco Use Status: Never used Tobacco Use of substances other than those prescribed or required for medical reasons: No Are you DNR?: No Advance Directives: No Advance Directives Information Provided: Yes Meds Allergies Allergy/AdvReac Type Severity Reaction Status Date / Time No Known Allergies Allergy Verified 03/28/23 11:27 Home Medications Medication Instructions Recorded Confirmed Last Taken Type ibuprofen 800 mg tablet 800 mg PO Q8H PRN pain 03/28/23 03/28/23 03/26/23 History Exam Height,Weight and Vital Signs: Height 4 ft 8 in Weight 59.874 kg Last Vital Signs Temp 97.3 F 03/28/23 11:45 Pulse 78 03/28/23 11:45 Resp 16 03/28/23 11:45 BP 103/69 03/28/23 11:45 Pulse Ox 98 03/28/23 11:45 O2 Del Method Room Air 03/28/23 11:45 Pertinent Lab Results Pertinent Lab Results: Laboratory Tests 03/28/23 11:38 Urine Test NEGATIVE Airway Mallampati Class: II TM Dist: >3cm Loose/Missing/Broken Teeth: No Heart: rrr Lungs: clear Assessment and Plan Final Anesthetic Review Family History of Problems with Anesthesia: No History of Problems with Anesthesia: No NPO: Yes ASA Class: I Final Preanesthetic Review: No Changes in Pt Med Stat Patient Risk: Low Procedure Risk: Low Anesthetic Plan Anesthetic Plan: GA Disposition: Standard PACU
--- NOTE | 2023-03-28 13:51 | W.PM.OPN ---
Operative Note Operative Note Date of Service: 03/28/23 Narrative: PreOperative Diagnosis:?? Right UPJ stone s/p laser lithotripsy, s/p stent Post Operative Diagnosis:?? Right UPJ stone s/p laser lithotripsy, s/p stent Procedure: Cystoscopy, right ureteroscopy stone basket removal of stone fragments stent removal Surgeon:?Dr Trice Ferrer Anesthesia:? General Indications: The patient is s/p right ureteroscopy laser lithotripsy, and stent insertion, FU KUB noted stone fragments along the stent. Procedure: After informed consent was verified the patient was brought to the operating placed on the OR table in supine position.? General Anesthesia was administered per protocol.? The patient was placed in lithotomy position, prepped and draped in the usual sterile fashion.? Safety pause time-out and side of surgery confirmed.? Antibiotics confirmed. A 22 Divehi cystoscope was inserted transurethrally, the bladder was visualized.? Both ureteric orifices were in normal position. The right ureteral stent was curled in the bladder. The? distal end of the ureteral stent was grasped with the flexible grasping forceps. The stent was pulled retrograde through the urethra. A guidewire was attempted to be passed through the stent, but due to califications within the stent lumen this was not successful. The Cystoscope was replaced and a guide wire was passed along side the stent into the right renal pelvis. The stent was removed. The cystoscope was removed, leaving the guidewire in place. The guidewire was used as the safety and was attached to the draping. The semi rigid ureteroscope was passed transurethrally into the ureter. Several small stone fragments were noted distally and removed with the stone basket. The 0 degree basket was used to remove the stone fragments, which were sent for analysis. The ureteroscope was removed. The cystoscope was passed over the safety guidewire. An open ended ureteral catheter was passed over the guide wire into the renal pelvis and the guide wire was removed, several minutes allowed the renal pelvis to decompress and the open ended ureteral catheter was removed. The bladder was emptied.? The rigid cystoscope was removed. ? The patient tolerated the procedure well and was brought to the recovery room in stable condition. Complications: None Drains: none
[2023-03-28] MEDS: Phenazopyridine HCL 200 MG TABLET PO (14:26)
[2023-03-28] MEDS: fentaNYL citrate/PF 100 MCG/2 ML VIAL 25 MCG IVPUSH (14:43)
[2023-03-28] MEDS: oxyCODONE HCl Immed Release 5 MG TABLET PO (14:50)
[2023-04-06 18:39] LABS: Stone Source RIGHT URETERAL STONE
== END 2023-03-28 15:20 | disposition home or self-care (01) ==
PROVIDERS: Nurse Practitioner; Visit Provider Urology
PROC: (CPT 52352; principal; 2023-03-28 13:00)
DX: N13.30 Unspecified hydronephrosis (principal); N20.0 Calculus of kidney; Z95.0 Presence of cardiac pacemaker
CPT/HCPCS: 52352; 81025; 82365; 88300; C1769; J0690; J1100; J1885; J2250; J2405; J2704; J3010; Q9967

== ENCOUNTER → 2023-03-28 11:06 | Outpatient (BNV) | payer OTHER, SELFPAY | PROVIDERS: Visit Provider Urology | DX: N20.1 Calculus of ureter (principal) | CPT/HCPCS: 52352 ==

== ENCOUNTER 2023-06-08 08:22 | Outpatient (REF) | payer OTHER, SELFPAY ==
--- NOTE | ~2023-06-08 | US_ITS ---
EXAMINATION: US RETROPERITONEAL LIMITED (RENAL ONLY) CLINICAL INFORMATION: Status post right ureteroscopy, laser lithotripsy. UPJ stone. COMPARISON: X-ray abdomen KUB 03/24/2023. CT abdomen and pelvis 03/17/2023. Limited abdominal ultrasound 09/29/2021. TECHNIQUE: Real-time imaging of the kidneys. FINDINGS: RIGHT KIDNEY: 10.0 x 4.0 x 4.4 cm (SAG x AP x TRV). The kidney is normal in size, contour, and echogenicity. Renal cortical thickness is normal. No calculi or focal parenchymal lesions. No hydronephrosis. LEFT KIDNEY: 9.8 x 5.1 x 4.0 cm (SAG x AP x TRV). The kidney is normal in size, contour, and echogenicity. Renal cortical thickness is normal. No focal parenchymal lesions or hydronephrosis. At the lower pole, a 3 mm nonobstructing calculus is seen, with twinkle artifact. US/US renal BI IMPRESSION: A 3 mm nonobstructing left renal calculus is seen. No right renal calculus is seen. No hydronephrosis is noted bilaterally.
== END 2023-06-08 08:23 | disposition home or self-care (01) ==
LOC: HO.US 08:22
PROVIDERS: Visit Provider Urology
DX: N20.0 Calculus of kidney (principal); N13.30 Unspecified hydronephrosis
CPT/HCPCS: 76775